=== PATIENT | male | born 1955 | race Caucasian/White ===

== ENCOUNTER 2019-07-14 08:22 | Outpatient (CLI) | payer MEDICARE ==
[2019-07-14] MEDS ORDERED: Iopamidol 370 76% 100 ML VIAL ONE (09:47)
--- NOTE | 2019-07-14 11:48 | CT ---
CT ABDOMEN AND PELVIS WITH AND WITHOUT IV CONTRAST: Date: 07/14/19 INDICATION: History of gross hematuria. COMPARISON: None. FINDINGS: There are small bilateral pleural effusions with bibasilar atelectasis. There is a moderate size hiat al hernia. No focal hepatic lesion is evident. The pancreas and adrenal glands are normal appearing. The spleen is normal appearing. No solid renal lesion is evident. No hydronephrosis is seen. No renal or ureteral calculus noted. No gross urothelial lesion is demonstrated. The visualized segmentally opacified ureters demonstrate no gross urothelial lesion. The distal right ureter is not well opacified on the delayed phase images. N o definite intraluminal mass is seen within the bladder. The prostate gland measures 4.4 cm greatest transverse dimension. There is scattered colonic diverticula without evidence of active diverticulosis. There is no retroce cookie appendix. The visualized unopacified small and large bowel appear within normal limits. There is a small, fat-containing periumbilical hernia measuring 1.3 cm. There is scattered degenerative and osteoarthritic change. IMPRESSION: 1. No focal renal lesion, renal calculus, or gross urothelial lesion identified within limitations o f exam. 2. Moderate size hiatal hernia. 3. Bilateral pleural effusions. 4. Colonic diverticulosis. 5. Small, fat-containing periumbilical hernia. POS: [facility]
== END 2019-07-14 08:23 | disposition home or self-care (01) ==
LOC: MADCT 08:22
PROVIDERS: ATTEND Urology
DX: R31.0 Gross hematuria (principal); K44.9 Diaphragmatic hernia without obstruction or gangrene; J90 Pleural effusion, not elsewhere classified; K57.30 Diverticulosis of large intestine without perforation or abscess without bleeding; K42.9 Umbilical hernia without obstruction or gangrene
CPT/HCPCS: 36415; 74178; 82565; Q9967

== ENCOUNTER 2021-03-22 07:42 | Outpatient (CLI) | payer MEDICARE ==
[2021-03-22 08:33] LABS: ALT (SGPT) 22 U/L (8-55); AST (SGOT) 20 U/L (5-34); Albumin 4.1 g/dL (3.4-4.8); Alkaline Phosphatase 62 U/L (40-110); Anion Gap 13 mmol/L (10-20); BUN (Urea Nitrogen) 16 mg/dL (8.4-25.7); Bilirubin, Total 0.5 mg/dL (0.2-1.2); Calc. Creatinine Clearance 0 mL/min (70-130); Calcium 9.4 mg/dL (7.8-10.44); Carbon Dioxide 24 mmol/L (23-31); Cardiac Risk 2.1 (Less than 4.5); Chloride 107 mmol/L (98-107); Cholesterol 131 mg/dl (< 200 Desired); Globulin 2.9 g/dL (2.4-3.5); Glucose 173 mg/dL (80-115); HDL Cholesterol 62 mg/dL (>60 Neg Risk); LDL Cholesterol, Calculated 53 mg/dL; Potassium 4.3 mmol/L (3.5-5.1); Sodium 140 mmol/L (136-145); Triglycerides 82 mg/dL (Less than 150)
[2021-03-22 08:57] LABS: #Basophils 0.1 thou/uL (0.0-0.2); #Eosinphils 0.3 thou/uL (0.0-0.7); #Lymphocytes 1.3 thou/uL (1.20-3.40); #Monocytes 0.7 thou/uL (0.11-0.59); #Neutrophils 4.9 thou/uL (1.40-6.50); %Basophils 1.2 % (0.0-1.0); %Eosinophils 4.3 % (0.0-10.0); %Lymphocytes 17.8 % (21.0-51.0); %Neutrophils 66.9 % (42.0-75.0); Mean Corpuscular HGB CONC 33.2 g/dL (32.0-36.0); Mean Corpuscular Hemoglobin 32.4 pg (27.0-31.0); Mean Corpuscular Volume 97.6 fL (78.0-98.0); Mean Platelet Volume 7.8 fL (7.4-10.4); Platelet Count 209 thou/uL (130-400); RBC Distribution Width 11.7 % (11.5-14.5); Red Blood Cell (RBC) Count 4.31 mill/uL (4.70-6.10); White Blood Cell (WBC) Count 7.3 thou/uL (4.8-10.8)
== END 2021-03-22 07:43 | disposition home or self-care (01) ==
LOC: MADLAB 07:42
PROVIDERS: ATTEND Internal Medicine Cardiovascular Disease
DX: E78.2 Mixed hyperlipidemia (principal); I25.10 Atherosclerotic heart disease of native coronary artery without angina pectoris
CPT/HCPCS: 36415; 80053; 80061; 85025

== ENCOUNTER 2022-11-03 09:34 | Emergency (ER) | payer MEDICARE ==
[2022-11-03] MEDS ORDERED: Boostrix 0.5 ML (Tdap) VIAL (>/=7 yrs of age) ONE (11:28)
== END 2022-11-03 11:35 | disposition home or self-care (01) ==
LOC: MADERS 09:34
DX: L03.115 Cellulitis of right lower limb (principal); I25.10 Atherosclerotic heart disease of native coronary artery without angina pectoris; E11.9 Type 2 diabetes mellitus without complications; E78.5 Hyperlipidemia, unspecified; I10 Essential (primary) hypertension; Z23 Encounter for immunization
CPT/HCPCS: 90471; 90715